=== PATIENT | male | born 1960 | race Caucasian/White ===

== ENCOUNTER 2020-11-04 03:43 | Emergency (ER) | payer MEDICARE, BC ==
[~2020-11-04] VITALS: Ht 177.8 cm; Wt 72.6 kg
[2020-11-04 06:16] VITALS: BP 144/84
== END 2020-11-04 06:17 | disposition home or self-care (01) ==
LOC: M.ERS 03:43
DX: S01.81XA Laceration without foreign body of other part of head, initial encounter (principal); F17.210 Nicotine dependence, cigarettes, uncomplicated; W18.39XA Other fall on same level, initial encounter; Y93.89 Activity, other specified; Y92.89 Other specified places as the place of occurrence of the external cause; Y99.8 Other external cause status